=== PATIENT | female | born 1990 | race Caucasian/White ===

== ENCOUNTER → 2016-12-26 | Outpatient (CLI) | payer BC ==
--- NOTE | 2016-12-26 19:04 | REP ---
Chest two views HISTORY: Cough Comparison: None The lungs are clear. The heart is normal in size. The pulmonary vasculature is normal in appearance. The bony structure is intact. IMPRESSION: No acute disease. Signed by Grady Carbajal MD 12/26/2016 06:56 P
== END ==
LOC: M WUC 18:40
PROVIDERS: ATTEND Physician Assistant
DX: R06.02 Shortness of breath (principal); R05 Cough

== ENCOUNTER → 2017-06-18 | Outpatient (REF) | payer BC | LOC: M LAB REF 17:49 | DX: Z12.4 Encounter for screening for malignant neoplasm of cervix (principal) | CPT/HCPCS: G0123 ==

== ENCOUNTER → 2017-08-01 | Outpatient (CLI) | payer BC ==
[2017-08-01 19:37] LABS: BASO % 0.4 % (0.0-1.0); EOS # 0.2 10^3/uL (0.0-0.50); EOS % 2.2 % (0.0-3.0); HEMATOCRIT 37.3 % (36.0-47.0); HEMOGLOBIN 12.8 g/dl (12.0-15.5); IMMATURE GRANULOCYTE % 0.4 % (0-3.0); LYMPH # 3.5 10^3/uL (1.5-6.5); LYMPH % 41.6 % (24.0-44.0); MEAN CORPUSCULAR HEMOGLOBIN 30.4 pg (27.0-33.0); MEAN CORPUSCULAR HGB CONC 34.3 g/dl (32.0-36.5); MEAN CORPUSCULAR VOLUME 88.6 fl (80.0-96.0); MONO # 0.8 10^3/uL (0.0-0.8); MONO % 9.1 % (0.0-5.0); NEUTROPHILS # 3.9 10^3/uL (1.8-7.7); NEUTROPHILS % 46.3 % (36.0-66.0); PLATELET COUNT, AUTOMATED 305 10^3/uL (150-450); RED BLOOD COUNT 4.21 10^6/uL (4.00-5.40); RED CELL DISTRIBUTION WIDTH 12.5 % (11.5-14.5); WHITE BLOOD COUNT 8.3 10^3/uL (4.0-10.0)
[2017-08-01 20:19] LABS: TOTAL 25(OH) VITAMIN D 29.5 NG/ML (30.0-100.0)
[2017-08-01 20:22] LABS: ALBUMIN 3.8 GM/DL (3.2-5.2); ALBUMIN/GLOBULIN RATIO 1.12 (1.00-1.93); ALKALINE PHOSPHATASE 59 U/L (45-117); ALT/SGPT 30 U/L (12-78); ANION GAP 9 MEQ/L (8-16); AST/SGOT 21 U/L (7-37); BILIRUBIN,TOTAL 0.3 MG/DL (0.2-1.0); BLOOD UREA NITROGEN 15 MG/DL (7-18); CALCIUM LEVEL 8.9 MG/DL (8.5-10.1); CARBON DIOXIDE LEVEL 26 MEQ/L (21-32); CHLORIDE LEVEL 107 MEQ/L (98-107); CREATININE FOR GFR 0.99 MG/DL (0.55-1.30); GLOMERULAR FILTRATION RATE > 60.0 (>60); GLUCOSE, FASTING 82 MG/DL (70-100); POTASSIUM SERUM 3.9 MEQ/L (3.5-5.1); SODIUM LEVEL 142 MEQ/L (136-145); TOTAL PROTEIN 7.2 GM/DL (6.4-8.2)
== END ==
LOC: M WUC 18:25
DX: Z00.00 Encounter for general adult medical examination without abnormal findings (principal); E55.9 Vitamin D deficiency, unspecified
CPT/HCPCS: 84443

== ENCOUNTER → 2017-12-27 | Outpatient (REF) | payer BC ==
[2017-12-27 20:03] LABS: CHLAMYDIA DNA AMPLIFICATION NEGATIVE (NEGATIVE); GC DNA AMPLIFICATION NEGATIVE (NEGATIVE)
== END ==
LOC: M LAB REF 17:06
DX: Z11.3 Encounter for screening for infections with a predominantly sexual mode of transmission (principal)
CPT/HCPCS: 87591

== ENCOUNTER → 2018-03-06 | Outpatient (CLI) | payer BC | LOC: M WUC 17:16 | PROVIDERS: ATTEND Obstetrics & Gynecology | DX: N91.2 Amenorrhea, unspecified (principal) ==

== ENCOUNTER → 2018-04-03 | Outpatient (CLI) | payer BC ==
[2018-04-03 18:27] LABS: FOLLICLE STIMULATING HORMONE 1.4 mIU/mL; LUTEINIZING HORMONE 3.9 mIU/mL; PROGESTERONE 3.87 NG/ML; PROLACTIN 13.6 NG/ML
== END ==
LOC: M SMT 15:25
PROVIDERS: ATTEND Specialist
DX: N91.1 Secondary amenorrhea (principal)

== ENCOUNTER 2018-06-07 12:14 | Day surgery (SDC) | payer BC ==
[~2018-06-07] VITALS: Ht 157.5 cm; Wt 100.7 kg
[~2018-06-07 12:14] MED LIST: PRENTAB55 PO
[2018-06-07 13:38] LABS: HEMATOCRIT 40.4 % (36.0-47.0); HEMOGLOBIN 13.9 g/dl (12.0-15.5); MEAN CORPUSCULAR HEMOGLOBIN 31.1 pg (27.0-33.0); MEAN CORPUSCULAR HGB CONC 34.4 g/dl (32.0-36.5); MEAN CORPUSCULAR VOLUME 90.4 fl (80.0-96.0); PLATELET COUNT, AUTOMATED 283 10^3/uL (150-450); RED BLOOD COUNT 4.47 10^6/uL (4.00-5.40); WHITE BLOOD COUNT 10.5 10^3/uL (4.0-10.0)
[2018-06-07] MEDS ORDERED: LR 1,000 ML IV ONE (14:30)
[2018-06-07] MEDS ORDERED: LIDOCAINE 2% INJ 100 MG/5 ML SDV (FOR ANES.) As Ordered ONE (15:57)
[2018-06-07] MEDS ORDERED: PROPOFOL 200 MG/20 ML VIAL As Ordered ONE (15:57)
[2018-06-07] MEDS ORDERED: MIDAZOLAM INJ 2 MG/2 ML VIAL (J2250) As Ordered ONE (15:57)
[2018-06-07] MEDS ORDERED: fentaNYL 100 MCG/2 ML INJECTION (J3010) As Ordered ONE ×2 (15:58→16:28)
[2018-06-07] MEDS ORDERED: dexameTHASONE 4 MG/ML 1ML VIAL (J1100) As Ordered ONE (16:26)
[2018-06-07] MEDS ORDERED: KETOROLAC 60 MG/2 ML VIAL (J1885) As Ordered ONE (16:26)
[2018-06-07] MEDS ORDERED: ONDANSETRON 4MG/2ML VIAL (J2405) As Ordered ONE ×2 (16:26→16:49)
[2018-06-07] MEDS ORDERED: miSOPROStol 200 MCG TAB (S0191) As Ordered ONE (16:43)
[2018-06-07] MEDS ORDERED: METHYLERGONOVINE MALEATE 0.2 MG/ML VIAL (J2210) As Ordered ONE (16:46)
[2018-06-07] MEDS ORDERED: PERCOCET 5MG/325MG TAB As Ordered ONE (17:12)
[2018-06-07] MEDS ORDERED: fentaNYL 100 MCG/2 ML INJECTION (J3010) IV PRN (17:15)
[2018-06-07] MEDS ORDERED: PERCOCET 5MG/325MG TAB PO PRN (17:15)
[2018-06-07] MEDS ORDERED: METOCLOPRAMIDE INJ 10MG/2ML VIAL (J2765) IV PRN (17:15)
[2018-06-07] MEDS ORDERED: MEPERIDINE INJ 25 MG/ML VIAL (J2175) IV PRN (17:15)
[2018-06-07] MEDS ORDERED: LR 1,000 ML IV SCH ×2 (17:15→17:45)
[2018-06-07] MEDS ORDERED: ONDANSETRON 4MG/2ML VIAL (J2405) IV PRN (17:15)
[2018-06-07] MEDS ORDERED: DOXYCYCLINE HYCLATE 100 MG TAB As Ordered ONE (17:36)
[2018-06-07] MEDS ORDERED: ACETAMINOPHEN 500 MG TAB As Ordered ONE (17:36)
[2018-06-07] MEDS ORDERED: RHOGAM 300 MCG (1500 IU) INJ (J2790) IM ONE (17:45)
[2018-06-07] MEDS ORDERED: ACETAMINOPHEN 500 MG TAB PO ONE (17:45)
[2018-06-07] MEDS ORDERED: DOXYCYCLINE HYCLATE 100 MG TAB PO ONE (18:00)
[2018-06-07 19:10] VITALS: BP 127/62
--- NOTE | 2018-06-08 00:27 | RO ---
DATE OF PROCEDURE: 06/07/2018 PREPROCEDURE DIAGNOSIS: Embryonic demise. POSTPROCEDURE DIAGNOSIS: Embryonic demise. PROCEDURE: Dilation, evacuation and curettage (D, E and C). SURGEON: Grady Guzman MD DIRECT SERVICE PROVIDER: ANESTHESIA: General endotracheal. ESTIMATED BLOOD LOSS: 500 mL. URINE OUTPUT: 100 mL. FINDINGS: Moderate amount of products of conception, moderate uterine atony encountered. DESCRIPTION OF PROCEDURE: The patient was taken to the operating room where general endotracheal anesthesia was induced. She was prepped and draped in a sterile fashion in the dorsal lithotomy position. The bladder was emptied with a catheter. A speculum was placed in the vagina. The anterior lip of the cervix was grasped with a tenaculum. The cervix was dilated with tapered dilators. The #8 mm suction curette was inserted through the internal os, suction device was activated, the curette was gently rotated until products of conception were noted coming through the suction tubing. Sharp curettage was performed. Moderate uterine atony was encountered. Several more attempts were made at suctioning of the uterus. Fundal massage was performed. Patient received 800 mcg of Cytotec per rectum. She also received 0.2 mg of Methergine intramuscularly. The uterine tone improved significantly and bleeding ceased. All instruments were removed. Sponge and instrument counts were correct.
== END 2018-06-07 19:20 | disposition home or self-care (01) ==
LOC: M SDC 12:14
PROVIDERS: ATTEND Specialist
DX: O02.1 Missed abortion (principal)
CPT/HCPCS: 36415; 59820; 85027; 86850; 86900; 86901; 88305; J1100; J1885; J2210; J2250; J2405; J2790; J3010

== ENCOUNTER → 2018-10-02 | Outpatient (REF) | payer BC | LOC: M LAB REF 18:00 | PROVIDERS: ATTEND Advanced Practice Midwife | DX: R10.2 Pelvic and perineal pain (principal) ==

== ENCOUNTER 2018-10-17 15:59 | Emergency (ER) | payer BC ==
[~2018-10-17] VITALS: Ht 157.5 cm; Wt 105.3 kg
[2018-10-17 17:13] LABS: BASO % 0.3 % (0.0-1.0); EOS # 0.2 10^3/uL (0.0-0.50); EOS % 2.4 % (0.0-3.0); HEMATOCRIT 39.6 % (36.0-47.0); HEMOGLOBIN 13.4 g/dl (12.0-15.5); LYMPH # 2.5 10^3/uL (1.5-6.5); LYMPH % 24.9 % (24.0-44.0); MEAN CORPUSCULAR HEMOGLOBIN 29.9 pg (27.0-33.0); MEAN CORPUSCULAR HGB CONC 33.8 g/dl (32.0-36.5); MEAN CORPUSCULAR VOLUME 88.4 fl (80.0-96.0); MONO # 0.7 10^3/uL (0.0-0.8); MONO % 6.8 % (0.0-5.0); NEUTROPHILS # 6.6 10^3/uL (1.8-7.7); NEUTROPHILS % 65.2 % (36.0-66.0); PLATELET COUNT, AUTOMATED 271 10^3/uL (150-450); RED BLOOD COUNT 4.48 10^6/uL (4.00-5.40); WHITE BLOOD COUNT 10.1 10^3/uL (4.0-10.0)
[2018-10-17 17:39] LABS: BLOOD UREA NITROGEN 12 MG/DL (7-18); CALCIUM LEVEL 9.2 MG/DL (8.5-10.1); CARBON DIOXIDE LEVEL 27 MEQ/L (21-32); CHLORIDE LEVEL 108 MEQ/L (98-107); GLOMERULAR FILTRATION RATE > 60.0 (>60); GLUCOSE, FASTING 84 MG/DL (70-100); POTASSIUM SERUM 3.9 MEQ/L (3.5-5.1); SODIUM LEVEL 142 MEQ/L (136-145)
[2018-10-17 18:01] LABS: HCG, SERUM QUANTITATIVE 11 MIU/ML
[2018-10-17 20:00] VITALS: BP 127/74
--- NOTE | 2018-10-17 20:08 | REPVR ---
EXAM: US First Trimester, Transabdominal and US , Transvaginal EXAM DATE/TIME: 10/17/2018 6:35 PM CLINICAL HISTORY: 28 years old, female; Lmp or gestational age (in weeks): 5 weeks 3 days; Other: Vaginal spotting; ; Additional info: 5.5wks, vag bleeding, HX miscarriage TECHNIQUE: Imaging protocol: Real-time transabdominal obstetrical ultrasound of the maternal pelvis and a first trimester , less than 14 weeks 0 days, with image documentation. Transvaginal imaging was used for better evaluation of the fetus and adnexa. COMPARISON: US PELVIC NON-OB COMPLETE 10/07/2018 5:52 PM FINDINGS: Uterus: The uterus measures 8.3 x 3.9 x 4.8 cm. The endometrium measures 1.0 cm in thickness with some cystic areas, but no definite intrauterine gestational sac visualized. Cervix: Unremarkable. Right adnexa: The right ovary measures 4.4 x 2.5 x 2.6 cm. There is a thick wall 1.2 x 1.4 x 1.4 cm complex cystic lesion with prominent peripheral vascularity, likey corpus luteal cyst. A 1.8 x 2.4 x 1.2 cm cystic lesion with diffuse low-level echoes may represent a hemorrhagic cyst. Normal ovarian color flow and spectral waveforms. Left adnexa: The left ovary measures 4.0 x 1.1 x 1.6 cm. Normal ovarian color flow and spectral waveforms. Intraperitoneal: There is free fluid in the pelvic cul-de-sac and right adnexa. IMPRESSION: 1. No definite intrauterine gestational sac. Findings can be secondary to early intrauterine or failed . Ectopic cannot be excluded. Clinical correlation with close follow up are advised. 2. Right ovarian corpus luteal cyst. 3. Probable right ovarian hemorraghic cyst. 4. Mild pelvic and right adnexal fluid. Electronically signed by: Mary Packer On 10/17/2018 20:08:06 PM
== END 2018-10-17 20:27 | disposition home or self-care (01) ==
LOC: M ED 15:59
DX: O20.9 Hemorrhage in early pregnancy, unspecified (principal); O99.351 Diseases of the nervous system complicating pregnancy, first trimester; G93.2 Benign intracranial hypertension; Z3A.00 Weeks of gestation of pregnancy not specified

== ENCOUNTER 2018-10-18 11:08 | Emergency (ER) | payer BC ==
[~2018-10-18] VITALS: Ht 157.5 cm; Wt 104.5 kg
[2018-10-18 12:19] LABS: BASO % 0.5 % (0.0-1.0); EOS # 0.3 10^3/uL (0.0-0.50); EOS % 3.2 % (0.0-3.0); HEMATOCRIT 40.5 % (36.0-47.0); HEMOGLOBIN 13.8 g/dl (12.0-15.5); LYMPH # 2.8 10^3/uL (1.5-6.5); LYMPH % 35.1 % (24.0-44.0); MEAN CORPUSCULAR HEMOGLOBIN 30.1 pg (27.0-33.0); MEAN CORPUSCULAR HGB CONC 34.1 g/dl (32.0-36.5); MEAN CORPUSCULAR VOLUME 88.2 fl (80.0-96.0); MONO # 0.6 10^3/uL (0.0-0.8); MONO % 7.1 % (0.0-5.0); NEUTROPHILS # 4.3 10^3/uL (1.8-7.7); NEUTROPHILS % 53.8 % (36.0-66.0); PLATELET COUNT, AUTOMATED 258 10^3/uL (150-450); RED BLOOD COUNT 4.59 10^6/uL (4.00-5.40); WHITE BLOOD COUNT 7.9 10^3/uL (4.0-10.0)
[2018-10-18 12:46] LABS: BLOOD UREA NITROGEN 10 MG/DL (7-18); CARBON DIOXIDE LEVEL 26 MEQ/L (21-32); CHLORIDE LEVEL 109 MEQ/L (98-107); CREATININE FOR GFR 0.84 MG/DL (0.55-1.30); GLOMERULAR FILTRATION RATE > 60.0 (>60); GLUCOSE, FASTING 87 MG/DL (70-100); HCG, SERUM QUANTITATIVE 7 MIU/ML; POTASSIUM SERUM 3.9 MEQ/L (3.5-5.1); SODIUM LEVEL 141 MEQ/L (136-145)
[2018-10-18] MEDS ORDERED: RHOGAM 300 MCG (1500 IU) INJ (J2790) IM ONE (13:30)
[2018-10-18 14:33] VITALS: BP 122/69
== END 2018-10-18 14:35 | disposition home or self-care (01) ==
LOC: M ED 11:08
DX: O20.0 Threatened abortion (principal); O99.351 Diseases of the nervous system complicating pregnancy, first trimester; G93.2 Benign intracranial hypertension; Z3A.00 Weeks of gestation of pregnancy not specified
CPT/HCPCS: 80048; 84702; 85025; 96372; 99284; J2790

== ENCOUNTER → 2018-10-21 | Outpatient (CLI) | payer BC | LOC: M WUC 14:13 | PROVIDERS: ATTEND Physician Assistant | DX: O20.8 Other hemorrhage in early pregnancy (principal); Z3A.00 Weeks of gestation of pregnancy not specified ==

== ENCOUNTER → 2020-12-21 | Outpatient (CLI) | payer BC | LOC: M WUC 12:09 | DX: O36.0990 Maternal care for other rhesus isoimmunization, unspecified trimester, not applicable or unspecified (principal); Z3A.00 Weeks of gestation of pregnancy not specified ==

== ENCOUNTER → 2021-07-13 | Outpatient (CLI) | payer BC ==
[2021-07-13 13:09] LABS: BASO % 0.4 % (0.0-1.0); EOS # 0.3 10^3/uL (0.0-0.5); EOS % 4.1 % (0.0-3.0); HEMATOCRIT 40.5 % (36.0-47.0); HEMOGLOBIN 13.2 g/dl (12.0-15.5); LYMPH # 3.1 10^3/uL (1.5-5.0); LYMPH % 38.4 % (24.0-44.0); MEAN CORPUSCULAR HEMOGLOBIN 29.5 pg (27.0-33.0); MEAN CORPUSCULAR HGB CONC 32.6 g/dl (32.0-36.5); MEAN CORPUSCULAR VOLUME 90.4 fl (80.0-96.0); MONO # 0.5 10^3/uL (0.0-0.8); MONO % 6.3 % (2.0-8.0); NEUTROPHILS % 50.5 % (36.0-66.0); PLATELET COUNT, AUTOMATED 299 10^3/uL (150-450); RED BLOOD COUNT 4.48 10^6/uL (4.00-5.40)
[2021-07-13 13:44] LABS: ALBUMIN 3.9 GM/DL (3.2-5.2); ALT/SGPT 25 U/L (12-78); BILIRUBIN,TOTAL 0.3 MG/DL (0.2-1.0); BLOOD UREA NITROGEN 13 MG/DL (7-18); CALCIUM LEVEL 9.4 MG/DL (8.5-10.1); CARBON DIOXIDE LEVEL 27 MEQ/L (21-32); CHLORIDE LEVEL 109 MEQ/L (98-107); CREATININE FOR GFR 0.81 MG/DL (0.55-1.30); FREE T4 0.76 NG/DL (0.76-1.46); GLOMERULAR FILTRATION RATE > 60.0 (>60); GLUCOSE, FASTING 78 MG/DL (70-100); POTASSIUM SERUM 4.3 MEQ/L (3.5-5.1); SODIUM LEVEL 142 MEQ/L (136-145); THYROID STIMULATING HORMONE 0.375 uIU/ML (0.358-3.740); TOTAL PROTEIN 6.9 GM/DL (6.4-8.2)
== END ==
LOC: M LAB 11:13
PROVIDERS: ATTEND Nurse Practitioner Family
DX: Z00.00 Encounter for general adult medical examination without abnormal findings (principal)

== ENCOUNTER → 2022-12-21 | Outpatient (CLI) | payer OTHER | LOC: M PLARAD 13:58 | PROVIDERS: ATTEND Ophthalmology | DX: G93.2 Benign intracranial hypertension (principal); J01.00 Acute maxillary sinusitis, unspecified ==

== ENCOUNTER 2023-05-31 07:55 | Day surgery (SDC) | payer OTHER ==
[~2023-05-31] VITALS: Ht 157.5 cm; Wt 99.6 kg
[~2023-05-31 07:55] MED LIST changes: +FLON1SPR; +GNPTAB36 PO; +OXYB-54 PO; +TOPI25TA10 PO
[2023-05-31] MEDS: LR 1,000 ML IV SCH (10:07)
[2023-05-31] MEDS: SODIUM CHLORIDE 0.9% NASAL GEL 15GM (AYR) As Ordered ONE (11:28)
[2023-05-31] MEDS ORDERED: ONDANSETRON 4MG 2ML VIAL As Ordered ONE (11:34)
[2023-05-31] MEDS ORDERED: PHENYLephrine 500MCG 5ML (100MCG/ML) SYRINGE As Ordered ONE (11:34)
[2023-05-31] MEDS ORDERED: ROCURONIUM BROMIDE 50MG/5ML VIAL As Ordered ONE (11:34)
[2023-05-31] MEDS ORDERED: ePHEDrine SULFATE 25 MG/5 ML(5MG/ML) SYRINGE As Ordered ONE (11:34)
[2023-05-31] MEDS ORDERED: MIDAZOLAM INJ 2MG/2ML VIAL As Ordered ONE (11:35)
[2023-05-31] MEDS ORDERED: fentaNYL 100 MCG/2 ML INJECTION As Ordered ONE (11:35)
[2023-05-31] MEDS ORDERED: LIDOCAINE 2% 100MG/5ML SDV (FOR ANES.) As Ordered ONE (11:38)
[2023-05-31] MEDS ORDERED: propofoL 200 MG/20 ML VIAL As Ordered ONE (11:39)
[2023-05-31] MEDS ORDERED: SUGAMMADEX SODIUM 500 MG/5 ML VIAL (BRIDION) As Ordered ONE (11:39)
[2023-05-31] MEDS ORDERED: HYDROmorphone HCL 2MG/ML 1ML VIAL As Ordered ONE (12:36)
[2023-05-31] MEDS: LIDOCAINE W/EPINEPHRINE 1% 20ML VIAL As Ordered ONE (13:00)
[2023-05-31] MEDS ORDERED: ESMOLOL INJ 100MG/10ML VIAL As Ordered ONE (13:06)
[2023-05-31] MEDS: EPINEPHrine 1MG/ML INJ 30ML MD-VIAL As Ordered ONE (13:08)
[2023-05-31] MEDS: METHYLENE BLUE 0.5% (5MG/ML) 10 ML AMP (PROVAYBLUE) As Ordered ONE (13:09)
[2023-05-31] MEDS ORDERED: ACETAMINOPHEN 1000MG 100ML IV BAG As Ordered ONE (13:20)
[2023-05-31] MEDS ORDERED: LR 1,000 ML IV SCH (13:40)
[2023-05-31] MEDS: fentaNYL 100 MCG/2 ML INJECTION IV PRN (14:27)
[2023-05-31] MEDS: ONDANSETRON 4MG 2ML VIAL IV PRN (15:25)
[2023-05-31 15:59] VITALS: BP 132/79; TEMP 97.7; O2SAT 100
== END 2023-05-31 16:37 | disposition home or self-care (01) ==
LOC: M SDC 07:55
PROVIDERS: ATTEND Otolaryngology
DX: J32.0 Chronic maxillary sinusitis (principal); J32.2 Chronic ethmoidal sinusitis; J33.8 Other polyp of sinus; G93.2 Benign intracranial hypertension; H90.11 Conductive hearing loss, unilateral, right ear, with unrestricted hearing on the contralateral side; H69.91 Unspecified Eustachian tube disorder, right ear; H93.13 Tinnitus, bilateral; Z90.49 Acquired absence of other specified parts of digestive tract; Z79.899 Other long term (current) drug therapy; Z97.5 Presence of (intrauterine) contraceptive device
CPT/HCPCS: 31254; 31267; 61782; 81025; 88305; C2625; J0131; J0171; J1100; J1170; J1805; J2250; J2371; J2405; J3010; Q9968

== ENCOUNTER → 2023-08-31 | Outpatient (CLI) | payer OTHER | LOC: M RAD 11:53 | PROVIDERS: ATTEND Physician Assistant Medical | DX: H93.A1 Pulsatile tinnitus, right ear (principal); I65.23 Occlusion and stenosis of bilateral carotid arteries ==

== ENCOUNTER → 2025-01-30 | Outpatient (CLI) | payer OTHER ==
[~2025-01-30] MED LIST changes: +TOPI-256 PO; -TOPI25TA10 PO
[2025-01-30 14:35] LABS: BASO # 0.0 10^3/uL (0.0-0.2); BASO % 0.4 % (0.0-1.0); EOS # 0.5 10^3/uL (0.0-0.5); EOS % 6.4 % (0.0-3.0); LYMPH # 2.5 10^3/uL (1.5-5.0); LYMPH % 31.7 % (24.0-44.0); MONO # 0.6 10^3/uL (0.0-0.8); MONO % 8.0 % (2.0-8.0); NEUTROPHILS # 4.2 10^3/uL (1.5-8.5); NEUTROPHILS % 53.4 % (36.0-66.0); PLATELET COUNT, AUTOMATED 310 10^3/uL (150-450)
[2025-01-30 14:37] LABS: ALT/SGPT 16 U/L (7.0-40); AST/SGOT 18 U/L (<34); CALCIUM LEVEL 8.7 MG/DL (8.5-10.1); CARBON DIOXIDE LEVEL 26 MMOL/L (20-31); CHLORIDE LEVEL 106 MMOL/L (98-107); CHOLESTEROL LEVEL 162 MG/DL (<200); CHOLESTEROL RISK RATIO 3.54 (<5); CREATININE FOR GFR 0.87 MG/DL (0.55-1.30); GLOMERULAR FILTRATION RATE > 90.0 (>60); LDL CHOLESTEROL 102.1 MG/DL (<100); NON-HDL-C 116.3 MG/DL; POTASSIUM SERUM 4.7 MMOL/L (3.5-5.1); SODIUM LEVEL 141 MMOL/L (136-145); TRIGLYCERIDES LEVEL 71 MG/DL (<150); VITAMIN B12 LEVEL 276 PG/ML (211-911)
== END ==
LOC: M WUC 08:41
PROVIDERS: ATTEND Nurse Practitioner Family
DX: Z00.00 Encounter for general adult medical examination without abnormal findings (principal)